=== PATIENT | female | born 1965 | race Caucasian/White ===

== ENCOUNTER 2017-12-27 15:21 | Emergency (ER) | payer OTHER ==
[~2017-12-27] VITALS: Ht 162.6 cm; Wt 113.4 kg
[2017-12-27] MEDS ORDERED: MIRAPEX1 MG PO (15:34)
[2017-12-27] MEDS ORDERED: LISINOPRIL10 MG PO (15:34)
[2017-12-27] MEDS ORDERED: QUETIAPINE FUM100 MG PO (15:34)
[2017-12-27] MEDS ORDERED: CIPROFLOXIN HC2.5 M1 OPHTHALMIC (16:09)
[2017-12-27] MEDS ORDERED: IBUPROFEN 600600 M1 PO (16:09)
[2017-12-27] MEDS ORDERED: HYDROCODONE-AP1 EAC6 PO (16:09)
[2017-12-27 16:22] VITALS: BP 105/64
== END 2017-12-27 16:23 | disposition home or self-care (01) ==
LOC: M.ERS 15:21
DX: S05.01XA Injury of conjunctiva and corneal abrasion without foreign body, right eye, initial encounter (principal); I10 Essential (primary) hypertension; X58.XXXA Exposure to other specified factors, initial encounter; Y93.89 Activity, other specified; Y92.89 Other specified places as the place of occurrence of the external cause; Y99.8 Other external cause status